=== PATIENT | male | born 1990 | race Caucasian/White ===

== ENCOUNTER 2018-09-06 16:36 | Emergency (ER) | payer OTHER ==
[~2018-09-06] VITALS: Ht 170.2 cm; Wt 117.9 kg
[2018-09-06 16:39] VITALS: Ht 170.2 cm; Wt 117.9 kg
[2018-09-06 17:30] LABS: BASOPHIL % 0.4 % (0-2); PLATELET COUNT 174 x10^3mcL (130-400)
[2018-09-06 17:36] LABS: CALCIUM 9.2 mg/dL (8.5-10.1); CHLORIDE SERUM 106 mmol/L (98-107); GFR1 > 60 mL/min; GLUCOSE SERUM 116 mg/dL (74-106); SODIUM SERUM 143 mmol/L (136-145)
[2018-09-06 17:40] LABS: ALBUMIN 4.1 g/dL (3.4-5.0); ALKALINE PHOSPHATASE 87 U/L (46-116); ALT/SGPT 21 U/L (16-63); AST/SGOT 13 U/L (15-37); BILIRUBIN TOTAL 0.3 mg/dL (0.20-1.00); LIPASE 186 IU/L (73-393)
[2018-09-06 17:42] LABS: TOTAL PROTEIN, SERUM 8.3 g/dL (6.4-8.2)
[2018-09-06 18:08] LABS: microscopic required? NO
[2018-09-06 18:26] LABS: UA SPECIFIC GRAVITY 1.015 (1.005-1.035); urine erythrocyte NEGATIVE (NEGATIVE)
[2018-09-06 18:37] LABS: AMPHETAMINE QUAL UR NONE DETECTED (See below)
[2018-09-06 23:32] VITALS: BP 120/76
== END 2018-09-06 23:32 | disposition home or self-care (01) ==
LOC: ED 16:36
PROVIDERS: Emergency Medicine
DX: T46.1X2A Poisoning by calcium-channel blockers, intentional self-harm, initial encounter (principal); R06.02 Shortness of breath; Y92.89 Other specified places as the place of occurrence of the external cause; F32.9 Major depressive disorder, single episode, unspecified; F20.9 Schizophrenia, unspecified
CPT/HCPCS: 83880; G0480; J7030